=== PATIENT | female | born 1970 | race Caucasian/White ===

== ENCOUNTER 2022-01-17 12:04 | Emergency (ER) | payer BC, OTHER ==
[~2022-01-17] VITALS: Ht 167.6 cm; Wt 78.0 kg
[~2022-01-17 12:04] MED LIST: NOCURR
[2022-01-17 12:39] LABS: COVID AG,FIA SOURCE NASOPHARYNGEAL
[2022-01-17] MEDS ORDERED: ACET-66 PO (12:54)
[2022-01-17] MEDS ORDERED: GUAIFDM PO (12:54)
[2022-01-17 13:57] VITALS: BP 131/77
== END 2022-01-17 13:59 | disposition home or self-care (01) ==
LOC: EMS 12:08
DX: J06.9 Acute upper respiratory infection, unspecified (principal); Z20.822 Contact with and (suspected) exposure to COVID-19; Z98.890 Other specified postprocedural states
CPT/HCPCS: 99283

== ENCOUNTER 2023-11-09 21:29 | Emergency (ER) | payer OTHER ==
[~2023-11-09] VITALS: Ht 167.6 cm; Wt 86.4 kg
[~2023-11-09 21:29] MED LIST changes: +ACET-66 PO; +GUAIFDM PO
[2023-11-09 21:35] VITALS: BP 146/89; PULSE 90; RESP 16; TEMP 97.7
[2023-11-09] MEDS ORDERED: PRED-554 PO (23:26)
[2023-11-09] MEDS: PredniSONE 20 MG TABLET PO ONE (23:27)
== END 2023-11-09 23:41 | disposition home or self-care (01) ==
LOC: EMS 21:29
DX: R21 Rash and other nonspecific skin eruption (principal); Z98.890 Other specified postprocedural states
CPT/HCPCS: 99283; J7512